=== PATIENT | female | born 1990 | race Caucasian/White ===

== ENCOUNTER 2017-11-17 11:35 | Emergency (ER) | payer SELFPAY, OTHER ==
[2017-11-17 13:05] LABS: ADD MAN DIFF? NO
[2017-11-17 13:10] LABS: WHITE BLOOD COUNT 12.2 10^3/ul (4.8-10.8)
[2017-11-17 13:10] LABS: BASOPHIL # 0.1 10^3/ul (0.0-0.1); BASOPHILS % 1.1 % (0.0-2.0); EOSINOPHILS # 0.3 10^3/ul (0.0-0.5); EOSINOPHILS % 2.5 % (0.0-7.0); HEMATOCRIT 42.1 % (37.0-47.0); HEMOGLOBIN 14.5 g/dl (12.0-16.0); LYMPHOCYTES # 3.3 10^3/ul (0.8-2.9); LYMPHOCYTES % 27.5 % (15.0-51.0); MEAN CORPUSCULAR HEMOGLOBIN 28.7 pg (29.0-33.0); MEAN CORPUSCULAR HGB CONC 34.4 g/dl (32.0-37.0); MEAN CORPUSCULAR VOLUME 83.4 fl (82.0-101.0); MEAN PLATELET VOLUME 9.8 fl (7.4-10.4); MONOCYTE # 0.8 10^3/ul (0.3-0.9); MONOCYTES % 6.2 % (0.0-11.0); NEUTROPHIL # 7.6 10^3/ul (1.6-7.5); NEUTROPHILS % 62.3 % (39.0-77.0); PLATELET COUNT 330 10^3/UL (140-415); RED BLOOD COUNT 5.05 10^6/ul (4.20-5.40); RED CELL DISTRIBUTION WIDTH 13.3 % (11.5-14.5)
[2017-11-17 13:21] LABS: ADD UMIC YES; UR ASCORBIC ACID NEGATIVE (NEGATIVE); UR BACTERIA FEW /HPF (NONE SEEN); UR BILIRUBIN (Dip) NEGATIVE (NEGATIVE); UR BLOOD (Dip) 1+ mg/dL (NEGATIVE); UR CLARITY SLIGHTLY CLOUDY (CLEAR); UR COLOR YELLOW (YELLOW); UR GLUCOSE (Dip) NEGATIVE (NEGATIVE); UR KETONES (Dip) TRACE mg/dL (NEGATIVE); UR LEUKOCYTE ESTERASE (Dip) NEGATIVE Leu/ul (NEGATIVE); UR MUCUS MODERATE /HPF (NONE SEEN); UR NITRITE (Dip) POSITIVE (NEGATIVE); UR RBC 1 /HPF (0-5); UR SPECIFIC GRAVITY (Dip) 1.023 (1.003-1.030); UR SQUAMOUS EPITHELIAL CELL FEW /HPF (FEW); UR TOTAL PROTEIN (Dip) NEGATIVE (NEGATIVE); UR UROBILINOGEN (Dip) 1+ mg/dL (NEGATIVE); UR WBC 5 /HPF (0-5)
== END 2017-11-17 14:47 | disposition home or self-care (01) ==
LOC: FTE 11:35
DX: O23.41 Unspecified infection of urinary tract in pregnancy, first trimester (principal); R10.2 Pelvic and perineal pain; Z3A.01 Less than 8 weeks gestation of pregnancy
CPT/HCPCS: 36415; 76801; 76817; 81001; 84702; 85025; 86900; 86901; 99284-25

== ENCOUNTER 2017-11-19 08:34 | Emergency (ER) | payer SELFPAY ==
[2017-11-19 10:40] LABS: ADD MAN DIFF? NO
[2017-11-19 10:43] LABS: WHITE BLOOD COUNT 10.4 10^3/ul (4.8-10.8)
[2017-11-19 10:43] LABS: BASOPHIL # 0.1 10^3/ul (0.0-0.1); BASOPHILS % 1.1 % (0.0-2.0); EOSINOPHILS # 0.2 10^3/ul (0.0-0.5); EOSINOPHILS % 1.9 % (0.0-7.0); HEMATOCRIT 41.4 % (37.0-47.0); HEMOGLOBIN 14.1 g/dl (12.0-16.0); LYMPHOCYTES # 2.8 10^3/ul (0.8-2.9); LYMPHOCYTES % 26.9 % (15.0-51.0); MEAN CORPUSCULAR HEMOGLOBIN 28.6 pg (29.0-33.0); MEAN CORPUSCULAR HGB CONC 34.1 g/dl (32.0-37.0); MEAN PLATELET VOLUME 9.7 fl (7.4-10.4); MONOCYTE # 0.8 10^3/ul (0.3-0.9); MONOCYTES % 7.5 % (0.0-11.0); NEUTROPHIL # 6.5 10^3/ul (1.6-7.5); NEUTROPHILS % 62.3 % (39.0-77.0); PLATELET COUNT 313 10^3/UL (140-415); RED BLOOD COUNT 4.93 10^6/ul (4.20-5.40); RED CELL DISTRIBUTION WIDTH 13.3 % (11.5-14.5)
[2017-11-19 10:54] LABS: ADD UMIC YES; UR ASCORBIC ACID NEGATIVE (NEGATIVE); UR BACTERIA MODERATE /HPF (NONE SEEN); UR BILIRUBIN (Dip) NEGATIVE (NEGATIVE); UR BLOOD (Dip) 2+ mg/dL (NEGATIVE); UR CLARITY CLOUDY (CLEAR); UR COLOR YELLOW (YELLOW); UR GLUCOSE (Dip) NEGATIVE (NEGATIVE); UR KETONES (Dip) NEGATIVE (NEGATIVE); UR LEUKOCYTE ESTERASE (Dip) 2+ Leu/ul (NEGATIVE); UR MUCUS FEW /HPF (NONE SEEN); UR NITRITE (Dip) POSITIVE (NEGATIVE); UR RBC 5 /HPF (0-5); UR SQUAMOUS EPITHELIAL CELL MODERATE /HPF (FEW); UR TOTAL PROTEIN (Dip) NEGATIVE (NEGATIVE); UR UROBILINOGEN (Dip) NEGATIVE (NEGATIVE); UR WBC 10 /HPF (0-5)
== END 2017-11-19 15:50 | disposition home or self-care (01) ==
LOC: FTE 08:34
DX: O23.41 Unspecified infection of urinary tract in pregnancy, first trimester (principal); R10.2 Pelvic and perineal pain; Z3A.01 Less than 8 weeks gestation of pregnancy
CPT/HCPCS: 36415; 76801; 76817; 81001; 84702; 85025; 99284-25

== ENCOUNTER 2017-11-22 08:14 | Emergency (ER) | payer SELFPAY ==
[2017-11-22 09:58] LABS: ADD MAN DIFF? NO
[2017-11-22 10:02] LABS: BASOPHIL # 0.1 10^3/ul (0.0-0.1); BASOPHILS % 1.1 % (0.0-2.0); EOSINOPHILS # 0.2 10^3/ul (0.0-0.5); EOSINOPHILS % 1.7 % (0.0-7.0); HEMATOCRIT 41.5 % (37.0-47.0); HEMOGLOBIN 14.2 g/dl (12.0-16.0); LYMPHOCYTES % 26.3 % (15.0-51.0); MEAN CORPUSCULAR HEMOGLOBIN 28.8 pg (29.0-33.0); MEAN CORPUSCULAR HGB CONC 34.2 g/dl (32.0-37.0); MEAN CORPUSCULAR VOLUME 84.2 fl (82.0-101.0); MONOCYTE # 0.8 10^3/ul (0.3-0.9); MONOCYTES % 7.3 % (0.0-11.0); NEUTROPHIL # 7.2 10^3/ul (1.6-7.5); NEUTROPHILS % 63.2 % (39.0-77.0); PLATELET COUNT 331 10^3/UL (140-415); RED BLOOD COUNT 4.93 10^6/ul (4.20-5.40); RED CELL DISTRIBUTION WIDTH 13.2 % (11.5-14.5)
[2017-11-22 10:02] LABS: WHITE BLOOD COUNT 11.4 10^3/ul (4.8-10.8)
[2017-11-22 10:27] LABS: ADD UMIC YES; UR ASCORBIC ACID NEGATIVE (NEGATIVE); UR BILIRUBIN (Dip) NEGATIVE (NEGATIVE); UR BLOOD (Dip) 2+ mg/dL (NEGATIVE); UR CLARITY SLIGHTLY CLOUDY (CLEAR); UR COLOR YELLOW (YELLOW); UR GLUCOSE (Dip) NEGATIVE (NEGATIVE); UR KETONES (Dip) NEGATIVE (NEGATIVE); UR LEUKOCYTE ESTERASE (Dip) TRACE Leu/ul (NEGATIVE); UR MUCUS FEW /HPF (NONE SEEN); UR NITRITE (Dip) NEGATIVE (NEGATIVE); UR RBC 2 /HPF (0-5); UR SPECIFIC GRAVITY (Dip) 1.021 (1.003-1.030); UR SQUAMOUS EPITHELIAL CELL MANY /HPF (FEW); UR TOTAL PROTEIN (Dip) NEGATIVE (NEGATIVE); UR UROBILINOGEN (Dip) 1+ mg/dL (NEGATIVE); UR WBC 6 /HPF (0-5)
== END 2017-11-22 14:45 | disposition home or self-care (01) ==
LOC: FTE 08:14
DX: O20.9 Hemorrhage in early pregnancy, unspecified (principal); R10.2 Pelvic and perineal pain; Z3A.01 Less than 8 weeks gestation of pregnancy
CPT/HCPCS: 36415; 76801; 76817; 81001; 84702; 85025; 86900; 86901; 99284-25

== ENCOUNTER 2017-11-28 12:43 | Inpatient (IN) | payer OTHER, MEDICAID ==
[2017-11-28 16:51] LABS: ADD MAN DIFF? NO
[2017-11-28 16:59] LABS: WHITE BLOOD COUNT 11.9 10^3/ul (4.8-10.8)
[2017-11-28 16:59] LABS: BASOPHIL # 0.1 10^3/ul (0.0-0.1); BASOPHILS % 0.8 % (0.0-2.0); EOSINOPHILS # 0.3 10^3/ul (0.0-0.5); EOSINOPHILS % 2.7 % (0.0-7.0); HEMATOCRIT 40.2 % (37.0-47.0); LYMPHOCYTES # 2.6 10^3/ul (0.8-2.9); LYMPHOCYTES % 21.5 % (15.0-51.0); MEAN CORPUSCULAR HEMOGLOBIN 28.7 pg (29.0-33.0); MEAN CORPUSCULAR HGB CONC 34.8 g/dl (32.0-37.0); MEAN CORPUSCULAR VOLUME 82.5 fl (82.0-101.0); MEAN PLATELET VOLUME 9.6 fl (7.4-10.4); MONOCYTE # 0.9 10^3/ul (0.3-0.9); MONOCYTES % 7.3 % (0.0-11.0); NEUTROPHILS % 67.4 % (39.0-77.0); PLATELET COUNT 319 10^3/UL (140-415); RED BLOOD COUNT 4.87 10^6/ul (4.20-5.40); RED CELL DISTRIBUTION WIDTH 13.2 % (11.5-14.5)
[2017-11-28] MEDS: ACETAMINOPHEN 500 MG TAB PO (22:15)
[2017-11-28] MEDS: LACTATED RINGER'S 1,000 ML IV (22:25)
[2017-11-29] MEDS ORDERED: ACETAMINOPHEN 325 MG TAB PO
[2017-11-29] MEDS ORDERED: ONDANSETRON 4 MG INJ IV
[2017-11-29] MEDS: LACTATED RINGER'S 1,000 ML IV ×4 (01:29→22:25)
[2017-11-29] MEDS ORDERED: LIDOCAINE 1% (MDV) 20 ML INJ (15:43)
[2017-11-29] MEDS ORDERED: MIDAZOLAM 1 MG/ML 2 ML INJ (15:43)
[2017-11-29] MEDS ORDERED: PROPOFOL 20 ML (15:43)
[2017-11-29] MEDS ORDERED: CLINDAMYCIN 900 MG/D5W (PMX) 50 ML IVPB (15:43)
[2017-11-29] MEDS ORDERED: FENTAnyl 50 MCG/ML VIAL (15:43)
[2017-11-29] MEDS ORDERED: DEXAMETHASONE 4 MG/ML 1 ML INJ (15:51)
[2017-11-29] MEDS ORDERED: ONDANSETRON 4 MG INJ (15:51)
[2017-11-29] MEDS ORDERED: FAMOTIDINE 20 MG INJ (15:52)
[2017-11-29] MEDS ORDERED: HYDROmorphONE (0.2 MG/ML) 10ML SYG IV ×3 (16:43→17:00)
== END 2017-11-29 23:38 | disposition home or self-care (01) | DRG 770 ==
LOC: PP2 22:28 → FTE 12:43
PROVIDERS: Obstetrics & Gynecology Obstetrics
PROC: 10D17ZZ Extraction of Products of Conception, Retained, Via Natural or Artificial Opening (ICD-10-PCS; principal; 2017-11-29 12:00)
DX: O03.4 Incomplete spontaneous abortion without complication (principal); O34.01 Maternal care for unspecified congenital malformation of uterus, first trimester; Q51.3 Bicornate uterus; Z3A.01 Less than 8 weeks gestation of pregnancy
CPT/HCPCS: 76801; 76817; 84702; 85025; 86850; 86900; 86901; 88305

== ENCOUNTER 2018-04-29 14:11 | Emergency (ER) | payer OTHER ==
[2018-04-29] MEDS: IBUPROFEN 600 MG TAB PO (16:11)
== END 2018-04-29 16:15 | disposition home or self-care (01) ==
LOC: FTE 14:11
DX: O02.1 Missed abortion (principal)
CPT/HCPCS: 99282; Z7502

== ENCOUNTER 2018-04-30 16:11 | Inpatient (IN) | payer OTHER ==
[2018-04-30 17:26] LABS: ADD MAN DIFF? NO
[2018-04-30 17:32] LABS: ABNORMAL IP MESSAGE 1; BASOPHIL # 0.1 10^3/ul (0.0-0.1); BASOPHILS % 0.4 % (0.0-2.0); EOSINOPHILS # 0.1 10^3/ul (0.0-0.5); EOSINOPHILS % 0.6 % (0.0-7.0); HEMATOCRIT 38.2 % (37.0-47.0); HEMOGLOBIN 12.9 g/dl (12.0-16.0); LYMPHOCYTES # 1.3 10^3/ul (0.8-2.9); LYMPHOCYTES % 7.8 % (15.0-51.0); MEAN CORPUSCULAR HEMOGLOBIN 28.9 pg (29.0-33.0); MEAN CORPUSCULAR HGB CONC 33.8 g/dl (32.0-37.0); MEAN CORPUSCULAR VOLUME 85.7 fl (82.0-101.0); MEAN PLATELET VOLUME 9.7 fl (7.4-10.4); MONOCYTE # 1.5 10^3/ul (0.3-0.9); NEUTROPHIL # 13.8 10^3/ul (1.6-7.5); NEUTROPHILS % 81.6 % (39.0-77.0); PLATELET COUNT 255 10^3/UL (140-415); RED BLOOD COUNT 4.46 10^6/ul (4.20-5.40); RED CELL DISTRIBUTION WIDTH 13.9 % (11.5-14.5)
[2018-04-30 17:33] LABS: POSITIVE DIFF @See below
[2018-04-30] MEDS: SOD CHLORIDE 0.9% 1,000 ML IV ×2 (17:33→20:28)
[2018-04-30] MEDS: ACETAMINOPHEN 500 MG TAB PO (17:33)
[2018-04-30 17:50] LABS: ALANINE AMINOTRANSFERASE 37 IU/L (13-69); ALBUMIN 4.1 g/dl (3.3-4.9); ALBUMIN/GLOBULIN RATIO 1.17; ALKALINE PHOSPHATASE 94 IU/L (42-121); AMYLASE 44 U/L (11-123); ANION GAP 17 (8-16); ASPARTATE AMINO TRANSFERASE 16 IU/L (15-46); BILIRUBIN,INDIRECT 0.3 mg/dl (0-1.1); BILIRUBIN,TOTAL 0.3 mg/dl (0.2-1.3); BLOOD UREA NITROGEN 12 mg/dl (7-20); CARBON DIOXIDE 24 mmol/L (21-31); CHLORIDE 103 mmol/L (97-110); CREATININE 0.59 mg/dl (0.44-1.00); GLUCOSE 105 mg/dl (70-220); LIPASE 33 U/L (23-300); POTASSIUM 3.6 mmol/L (3.5-5.1); SODIUM 140 mmol/L (135-144); TOTAL PROTEIN 7.6 g/dl (6.1-8.1)
[2018-04-30 18:03] LABS: ADD UMIC YES; UR ASCORBIC ACID NEGATIVE (NEGATIVE); UR BACTERIA FEW /HPF (NONE SEEN); UR BILIRUBIN (Dip) NEGATIVE (NEGATIVE); UR BLOOD (Dip) 2+ mg/dL (NEGATIVE); UR CLARITY SLIGHTLY CLOUDY (CLEAR); UR COLOR YELLOW (YELLOW); UR GLUCOSE (Dip) NEGATIVE (NEGATIVE); UR KETONES (Dip) 1+ mg/dL (NEGATIVE); UR LEUKOCYTE ESTERASE (Dip) 2+ Leu/ul (NEGATIVE); UR MUCUS FEW /HPF (NONE SEEN); UR NITRITE (Dip) NEGATIVE (NEGATIVE); UR RBC 33 /HPF (0-5); UR SPECIFIC GRAVITY (Dip) 1.024 (1.003-1.030); UR SQUAMOUS EPITHELIAL CELL MODERATE /HPF (FEW); UR TOTAL PROTEIN (Dip) 1+ mg/dl (NEGATIVE); UR UROBILINOGEN (Dip) 1+ mg/dL (NEGATIVE); UR WBC 77 /HPF (0-5)
[2018-04-30] MEDS ORDERED: ACETAMINOPHEN 325 MG TAB PO (19:30)
[2018-04-30] MEDS ORDERED: ONDANSETRON 4 MG INJ IV (19:30)
[2018-04-30] MEDS: CEFTRIAXONE 1 GM/50 ML (PMX) 50 ML IVPB (19:39)
[2018-04-30] MEDS: HYDROmorphONE 1 MG/ML SYG IV (20:28)
[2018-04-30] MEDS: ONDANSETRON 4 MG INJ IV (20:28)
[2018-04-30] MEDS: HYDROmorphONE 0.5 MG/0.5 ML SYG IV (21:21)
[2018-05-01] MEDS: morphine 4 MG/ML VIAL IV (01:10)
[2018-05-01 02:04] LABS: BASOPHILS % 0.3 % (0.0-2.0); EOSINOPHILS # 0.1 10^3/ul (0.0-0.5); EOSINOPHILS % 1.1 % (0.0-7.0); HEMATOCRIT 34.7 % (37.0-47.0); HEMOGLOBIN 11.6 g/dl (12.0-16.0); LYMPHOCYTES % 7.6 % (15.0-51.0); MEAN CORPUSCULAR HEMOGLOBIN 28.3 pg (29.0-33.0); MEAN CORPUSCULAR HGB CONC 33.4 g/dl (32.0-37.0); MEAN CORPUSCULAR VOLUME 84.6 fl (82.0-101.0); MEAN PLATELET VOLUME 9.8 fl (7.4-10.4); MONOCYTES % 7.6 % (0.0-11.0); NEUTROPHIL # 10.6 10^3/ul (1.6-7.5); NEUTROPHILS % 82.9 % (39.0-77.0); PLATELET COUNT 217 10^3/UL (140-415)
[2018-05-01 02:04] LABS: WHITE BLOOD COUNT 12.8 10^3/ul (4.8-10.8)
[2018-05-01 02:05] LABS: ADD MAN DIFF? NO
[2018-05-01] MEDS: SOD CHLORIDE 0.9% 1,000 ML IV ×3 (03:30→19:30)
[2018-05-01] MEDS ORDERED: BUPIVACAINE 0.75%/DEXT (SPINAL) 2 ML INJ (04:08)
[2018-05-01] MEDS ORDERED: FENTAnyl 50 MCG/ML VIAL (04:08)
[2018-05-01] MEDS ORDERED: morphine SULFATE/PF (10 MG/10 ML) INJ (04:08)
[2018-05-01] MEDS ORDERED: ROPIVACAINE 0.5 % 30 ML VIAL (04:21)
[2018-05-01] MEDS ORDERED: LIDOCAINE 1% (MDV) 20 ML INJ (04:24)
[2018-05-01] MEDS ORDERED: ACETAMINOPHEN 1000MG/100ML IV 100 ML (04:28)
[2018-05-01] MEDS ORDERED: PHENYLephrine (100 MCG/ML) 5ML SYG ×2 (04:30→04:57)
[2018-05-01] MEDS ORDERED: DEXAMETHASONE 4 MG/ML 1 ML INJ (04:32)
[2018-05-01] MEDS ORDERED: ONDANSETRON 4 MG INJ (04:32)
[2018-05-01] MEDS: MISOPROSTOL 200 MCG TAB PR (04:55)
[2018-05-01] MEDS ORDERED: OXYTOCIN 10 UNIT INJ ×2 (04:56→07:00)
[2018-05-01] MEDS ORDERED: MISOPROSTOL 200 MCG TAB (04:56)
[2018-05-01] MEDS ORDERED: DIPHENHYDRAMINE 50 MG INJ IV (05:00)
[2018-05-01] MEDS ORDERED: KETOROLAC 30 MG INJ IV (05:00)
[2018-05-01] MEDS ORDERED: NALBUPHINE HCL (10 MG/1 ML) INJ IV (05:00)
[2018-05-01] MEDS ORDERED: ZOLPIDEM 5 MG TAB PO (05:00)
[2018-05-01] MEDS ORDERED: NALOXONE (0.4 MG/ML) INJ IV (05:00)
[2018-05-01] MEDS ORDERED: HYDROmorphONE 0.5 MG/0.5 ML SYG IV (05:00)
[2018-05-01] MEDS ORDERED: EPHEDrine 50 MG INJ (05:08)
[2018-05-01] MEDS ORDERED: PROPOFOL 200 MG INJ (07:00)
[2018-05-01] MEDS: HYDROmorphONE 0.5 MG/0.5 ML SYG IV ×3 (07:56→18:59)
[2018-05-01] MEDS: LACTATED RINGER'S 1,000 ML IV (11:48)
== END 2018-05-01 22:45 | disposition home or self-care (01) | DRG 775 ==
LOC: MS1 19:25 → FTE 16:11
PROC: 10D07Z8 Extraction of Products of Conception, Other, Via Natural or Artificial Opening (ICD-10-PCS; principal; 2018-05-01 03:51)
DX: O02.0 Blighted ovum and nonhydatidiform mole (principal); O08.83 Urinary tract infection following an ectopic and molar pregnancy; N13.6 Pyonephrosis
CPT/HCPCS: 36415; 74018; 74176; 76775; 76801; 80053; 81001; 81025; 82150; 83690; 84702; 85025; 86850; 86900; 86901; 86920; 87086; 88305; 93005; 96360; 99285-25

== ENCOUNTER 2018-10-12 07:33 | Day surgery (SDC) | payer OTHER ==
[2018-10-12] MEDS: CIPROFLOXACIN 400 MG in D5W 200 ML IVPB (07:00)
[2018-10-12] MEDS ORDERED: ETOMIDATE 20 MG INJ (11:13)
[2018-10-12] MEDS ORDERED: PROPOFOL 20 ML (11:13)
[2018-10-12] MEDS ORDERED: LIDOCAINE 1% (MDV) 20 ML INJ (11:13)
[2018-10-12] MEDS ORDERED: PHENYLephrine (100 MCG/ML) 5ML SYG (11:25)
[2018-10-12] MEDS ORDERED: EPHEDrine 50 MG INJ (11:59)
[2018-10-12] MEDS ORDERED: FUROSEMIDE 20 MG INJ (12:08)
[2018-10-12] MEDS ORDERED: ONDANSETRON 4 MG INJ (12:13)
[2018-10-12] MEDS ORDERED: HYDROmorphONE 1 MG/5 ML IV SYRINGE IV (12:30)
[2018-10-12] MEDS ORDERED: HYDROCODONE/APAP (5/325) TAB PO (12:30)
[2018-10-12] MEDS: HYDROmorphONE 1 MG/5 ML IV SYRINGE IV ×3 (12:50→13:33)
[2018-10-12] MEDS: ONDANSETRON 4 MG INJ IV ×2 (12:51→15:23)
== END 2018-10-12 15:04 | disposition home or self-care (01) ==
LOC: SDS 07:33
DX: N20.0 Calculus of kidney (principal)
CPT/HCPCS: 50590; 74018; 74430; 87086